=== PATIENT | female | born 1975 | race Caucasian/White ===

== ENCOUNTER 2020-03-22 02:40 | Emergency (ER) | payer MEDICAID ==
[~2020-03-22] VITALS: Ht 175.3 cm; Wt 62.0 kg
[2020-03-22] MEDS ORDERED: MORPHINE SULFATE 4 MG/ML, 1ML IVPush PRN (03:00)
[2020-03-22] MEDS ORDERED: ONDANSETRON 2MG/ML, 2ML IVPush ONE (03:00)
[2020-03-22] MEDS ORDERED: SODIUM CHLORIDE FLUSH 10ML SYR IVF ONE (03:00)
[2020-03-22] MEDS ORDERED: MORPHINE SULFATE 4 MG/ML, 1ML ONE (03:03)
[2020-03-22] MEDS ORDERED: ONDANSETRON 2MG/ML, 2ML ONE (03:03)
--- NOTE | 2020-03-22 03:12 | NUR ---
IV ESTABLISHED. PT MEDICATED PER EMAR FOR PAIN. 5 RIGHTS ADDRESSED
[2020-03-22 03:13] LABS: BASOPHILS # (AUTO) 0.01 x10^3/uL (0-0.1); BASOPHILS % (AUTO) 0 % (0-1); EOSINOPHILS # (AUTO) 0.19 x10^3/uL (0-0.4); EOSINOPHILS % (AUTO) 4 % (1-7); LYMPHOCYTES % (AUTO) 24 % (22-44); MD NO; MEAN CORPUSCULAR HEMOGLOBIN 31.2 pg (27.0-34.8); MEAN CORPUSCULAR HGB CONC 33.4 g/dL (32.4-35.8); MEAN CORPUSCULAR VOLUME 93.4 fL (80-100); MEAN PLATELET VOLUME 7.8 fL (7.4-10.4); MONOCYTES # (AUTO) 0.32 x10^3/uL (0.2-0.8); MONOCYTES % (AUTO) 6 % (2-9); NEUTROPHILS # (AUTO) 3.36 x10^3/uL (1.8-6.8); NEUTROPHILS % (AUTO) 66 % (42-75); PLATELET COUNT 204 x10^3/uL (130-400); RED CELL DISTRIBUTION WIDTH 14.7 % (9.6-15.2)
[2020-03-22 03:22] LABS: ALANINE AMINOTRANSFERASE 161 U/L (12-78); ALBUMIN 3.3 g/dL (3.4-5.0); ANION GAP 4 mmol/L (5-15); CALCIUM 8.6 mg/dL (8.5-10.1); CHLORIDE 106 mmol/L (98-107); CREATININE 0.84 mg/dL (0.55-1.02)
[2020-03-22 03:27] LABS: ALKALINE PHOSPHATASE 140 U/L (45-117); BILIRUBIN,TOTAL 0.2 mg/dL (0.2-1.0)
--- NOTE | 2020-03-22 03:29 | NUR ---
PT PRESENTS TO THE ER C/O RIGHT SIDED ABD PAIN (RLQ) AND RIGHT SIDED FLANK PAIN X SEVERAL HOURS. PT REPORTS THE PAIN IS WORSE WITH PALPATION. DENIES ANY N/V/D. NO RECENT CHANGES IN BOWEL MOVEMENTS HOWEVER DOES REPORT BRIGHT RED BLOOD IN STOOL THIS PAST WEEK. PT HAS A HISTORY OF UTERINE CA, CURRENTLY RECEIVING CHEMO. ALL MONITORING EQUIPMENT APPLIED. ALL VITALS STABLE. AWAITING CT AT THIS TIME.
[2020-03-22] MEDS ORDERED: OMNIPAQUE 350 MG/ML, 100ML BOTTLE ONE (03:50)
--- NOTE | 2020-03-22 04:03 | NUR ---
PT AMBULATORY TO RESTROOM. STEADY GAIT NOTED. URINE SAMPLE OBTAINED. LABELED, COLLECTED AND SENT TO LAB
[2020-03-22 04:16] LABS: MICROSCOPIC AUTO
[2020-03-22 04:25] LABS: CULTURE INDICATED? YES
[2020-03-22 05:07] VITALS: BP 117/68
--- NOTE | 2020-03-22 05:07 | NUR ---
Patient/Caregiver given discharge instructions and they have confirmed that they understand the instructions. Patient ambulatory with steady gait.
== END 2020-03-22 05:09 | disposition home or self-care (01) ==
LOC: ED 03:05
DX: K52.9 Noninfective gastroenteritis and colitis, unspecified (principal); R93.5 Abnormal findings on diagnostic imaging of other abdominal regions, including retroperitoneum; Z90.710 Acquired absence of both cervix and uterus; Z85.42 Personal history of malignant neoplasm of other parts of uterus
CPT/HCPCS: 36415; 74177; 80053; 81001; 83690; 84703; 85025; 87077; 87086; 96374; 96375; 99285; J2270; J2405; Q9967; 87186